=== PATIENT | male | born 1955 | race Caucasian/White ===

== ENCOUNTER 2017-03-22 19:53 | Inpatient (IN) | payer MEDICAID ==
[~2017-03-22] VITALS: Ht 180.3 cm; Wt 103.0 kg
[~2017-03-22 19:53] MED LIST: ASPI81CH43 PO; GABA300C8 PO; LISI-275 PO; METO25TA5 PO; NOR10T PO
[2017-03-22 20:37] LABS: Basophils # (auto) 0.1 uL; Basophils % (auto) 0.7 % (0.0-2.0); Eosinophils # (auto) 0.5 uL; Eosinophils % (auto) 6.4 % (0.0-7.0); Hematocrit 42.5 % (41.0-53.0); Hemoglobin 13.8 g/dL (13.5-17.5); Lymphocytes # (auto) 2.1 uL; Mean Corpuscular Hgb Conc. 32.5 g/dL (32.0-36.0); Mean Corpuscular Volume 83.2 fL (80.0-100.0); Mean Platelet Volume 7.4 fL (7.4-10.4); Monocytes # (auto) 0.9 uL; Neutrophils # (auto) 4.5 uL; Neutrophils % (auto) 55.9 % (37.0-80.0); Platelet Count (auto) 175 10^3/uL (140-450); Red Cell Distribution Width 12.9 % (11.6-16.0)
[2017-03-22 20:56] LABS: INR 1.06 (0.9-1.15); Partial Thromboplastin Time 27.4 sec (22.64-33.71); Prothrombin Time 11.4 sec (9.37-12.3)
[2017-03-22] MEDS ORDERED: ASPirin 81 mg TAB PO ONE (21:15)
[2017-03-22] MEDS ORDERED: METOCLOPRAMIDE HCL 5MG/ml INJ 2ml VIAL IV ONE (21:15)
[2017-03-22] MEDS ORDERED: MORPHINE SULFATE 4 MG/ML SYRG IV ONE (21:15)
[2017-03-22 21:20] LABS: Albumin 4.1 g/dL (3.4-5.0); Alkaline Phosphatase 83 U/L (45-117); Anion Gap 6 (5-15); Aspartate Aminotransferase 32 U/L (15-37); BUN/Creatinine Ratio 8.5; Bilirubin, Total 0.5 mg/dL (0.2-1.0); Blood Urea Nitrogen 11 mg/dL (7-18); Carbon Dioxide 28 mmol/L (21-32); Chloride 106 mmol/L (98-107); GFR African American 73 mL/min; GFR Non-African American 60 mL/min; Glucose 124 mg/dL (74-106); Potassium 4.3 mmol/L (3.5-5.1); Sodium 140 mmol/L (136-145); Total Protein 7.5 g/dL (6.4-8.2)
[2017-03-22 21:37] LABS: B-Type Natriuretic Peptide 36.64 pg/mL (0-100)
[2017-03-22 21:46] LABS: Temperature: 23.3 C (20.0-25.0)
[2017-03-23] MEDS ORDERED: ONDANSETRON HCL 4 MG/2 ML VIAL IV PRN (02:00)
[2017-03-23] MEDS ORDERED: ACETAMINOPHEN 325 MG TAB PO PRN (02:00)
[2017-03-23] MEDS ORDERED: TEMAZEPAM 15 MG CAP PO PRN (02:00)
[2017-03-23] MEDS ORDERED: NITROGLYCERIN 0.4 MG SL TAB SL PRN (02:00)
[2017-03-23] MEDS ORDERED: MORPHINE SULF INJ 2 MG/ML SYRINGE 1ML IV PRN (02:00)
[2017-03-23] MEDS ORDERED: OME20T PO (03:45)
[2017-03-23] MEDS ORDERED: ATOR10TA PO (03:45)
[2017-03-23 05:00] VITALS: BP 153/69
[2017-03-23] MEDS: GABAPENTIN 300 MG CAP PO SCH ×3 (06:27→22:14)
[2017-03-23 07:02] LABS: Cholesterol 127 mg/dL (< 200); HDL Cholesterol 42 mg/dL (40-59); LDL Cholesterol 79 mg/dL (< 100); Triglycerides 107 mg/dL (< 150)
[2017-03-23 08:00] VITALS: BP 144/74
[2017-03-23] MEDS: LISINOPRIL 20 MG TAB PO SCH (09:43)
[2017-03-23] MEDS: ASPirin 81 mg TAB PO SCH (09:43)
[2017-03-23] MEDS: FAMOTIDINE 20 MG TAB PO SCH ×2 (09:43→22:14)
[2017-03-23] MEDS: ENOXAPARIN SOD 40 MG/0.4 ML SYRINGE SC SCH (09:44)
[2017-03-23] MEDS: HYDROcodone-ACET 5/325MG TAB PO PRN (09:48)
[2017-03-23 12:00] VITALS: BP 149/82
[2017-03-23 16:30] VITALS: BP 117/71
[2017-03-23 20:00] VITALS: BP 140/75
[2017-03-23 21:46] VITALS: BP 140/75
[2017-03-24 05:04] VITALS: BP 109/58
[2017-03-24] MEDS: GABAPENTIN 300 MG CAP PO SCH ×2 (06:17→14:00)
[2017-03-24 06:29] LABS: Basophils # (auto) 0.1 uL; Basophils % (auto) 0.7 % (0.0-2.0); DEFINITIVE VIEW TRANSMISSION; Eosinophils # (auto) 0.4 uL; Eosinophils % (auto) 6.1 % (0.0-7.0); Hematocrit 41.7 % (41.0-53.0); Hemoglobin 13.5 g/dL (13.5-17.5); Lymphocytes # (auto) 1.7 uL; Lymphocytes % (auto) 24.2 % (10.0-50.0); Mean Corpuscular Hgb Conc. 32.4 g/dL (32.0-36.0); Mean Corpuscular Volume 83.2 fL (80.0-100.0); Mean Platelet Volume 7.2 fL (7.4-10.4); Monocytes # (auto) 0.9 uL; Monocytes % (auto) 13.3 % (0.0-12.0); Neutrophils # (auto) 3.9 uL; Neutrophils % (auto) 55.7 % (37.0-80.0); Platelet Count (auto) 170 10^3/uL (140-450); Red Cell Distribution Width 12.8 % (11.6-16.0); White Blood Cell 7.1 10^3/uL (4.4-10.8)
[2017-03-24 06:57] LABS: Albumin 3.6 g/dL (3.4-5.0); BUN/Creatinine Ratio 11.9; Bilirubin, Total 0.5 mg/dL (0.2-1.0); Calcium 9.1 mg/dL (8.5-10.1); Potassium 4.2 mmol/L (3.5-5.1); Total Protein 6.8 g/dL (6.4-8.2)
[2017-03-24] MEDS ORDERED: ADENOSINE 87 MG in GIVE UN-DILUTED 0 ML IV STA (07:59)
[2017-03-24 08:00] VITALS: BP 122/68
[2017-03-24 09:15] VITALS: BP 119/65
[2017-03-24] MEDS: LISINOPRIL 20 MG TAB PO SCH (10:44)
[2017-03-24] MEDS: ENOXAPARIN SOD 40 MG/0.4 ML SYRINGE SC SCH (10:44)
[2017-03-24] MEDS: ASPirin 81 mg TAB PO SCH (10:44)
[2017-03-24] MEDS: FAMOTIDINE 20 MG TAB PO SCH (10:45)
[2017-03-24] MEDS: HYDROcodone-ACET 5/325MG TAB PO PRN (10:55)
[2017-03-24 13:00] VITALS: BP 134/75
[2017-03-24 16:35] VITALS: BP 138/65
[2017-03-24 18:49] VITALS: BP 138/65
== END 2017-03-24 19:34 | disposition home or self-care (01) | DRG 198 ==
LOC: ER 19:55 → TELE 19:56 → TELE-CENTR 03-23 03:04
PROVIDERS: ADMIT Internal Medicine; ATTEND Internal Medicine
DX: R07.89 Other chest pain (principal); I25.10 Atherosclerotic heart disease of native coronary artery without angina pectoris; I10 Essential (primary) hypertension; M94.0 Chondrocostal junction syndrome [Tietze]; E78.5 Hyperlipidemia, unspecified; T50.995A Adverse effect of other drugs, medicaments and biological substances, initial encounter; R00.1 Bradycardia, unspecified; K21.9 Gastro-esophageal reflux disease without esophagitis; Z82.49 Family history of ischemic heart disease and other diseases of the circulatory system; Z83.3 Family history of diabetes mellitus; Z79.899 Other long term (current) drug therapy; Z90.89 Acquired absence of other organs; Z80.8 Family history of malignant neoplasm of other organs or systems; Y92.89 Other specified places as the place of occurrence of the external cause
CPT/HCPCS: 36415; 71010; 78452; 80053; 80061; 83735; 83880; 84484; 85025; 85379; 85610; 85730; 93005; 93017; 93306; 94761; 96374; 96375; J0153

== ENCOUNTER 2018-04-25 20:53 | Emergency (ER) | payer MEDICAID ==
[~2018-04-25] VITALS: Ht 180.3 cm; Wt 97.5 kg
[~2018-04-25 20:53] MED LIST changes: +ATOR10TA PO; +GABA300C10 PO; -GABA300C8 PO; -LISI-275 PO; -METO25TA5 PO; +OME20T PO
[2018-04-25 22:11] LABS: Basophils # (auto) 0.1 uL; Eosinophils # (auto) 0.7 uL; Eosinophils % (auto) 7.3 % (0.0-7.0); Hematocrit 44.3 % (41.0-53.0); Hemoglobin 14.7 g/dL (13.5-17.5); Lymphocytes # (auto) 2.3 uL; Lymphocytes % (auto) 25.5 % (10.0-50.0); Mean Corpuscular Hemoglobin 27.4 pg (28.0-32.0); Mean Corpuscular Hgb Conc. 33.2 g/dL (32.0-36.0); Mean Corpuscular Volume 82.5 fL (80.0-100.0); Monocytes # (auto) 1.2 uL; Monocytes % (auto) 12.8 % (0.0-12.0); Neutrophils # (auto) 4.9 uL; Neutrophils % (auto) 53.4 % (37.0-80.0); Platelet Count (auto) 141 10^3/uL (140-450); Red Blood Cells 5.37 10^6/uL (4.5-5.90); Red Cell Distribution Width 14.9 % (11.8-14.3); White Blood Cell 9.1 10^3/uL (4.4-10.8)
[2018-04-25 23:01] LABS: Alanine Aminotransferase 28 U/L (16-61); Albumin 3.9 g/dL (3.4-5.0); Alkaline Phosphatase 95 U/L (45-117); Anion Gap 7 (5-15); Aspartate Aminotransferase 16 U/L (15-37); BUN/Creatinine Ratio 11.8; Bilirubin, Total 0.5 mg/dL (0.2-1.0); Blood Urea Nitrogen 14 mg/dL (7-18); Calcium 9.1 mg/dL (8.5-10.1); Carbon Dioxide 27 mmol/L (21-32); Chloride 105 mmol/L (98-107); GFR African American 80 mL/min; GFR Non-African American 66 mL/min; Glucose 117 mg/dL (74-106); Magnesium 2.6 mg/dL (1.6-2.6); Potassium 4.6 mmol/L (3.5-5.1); Sodium 139 mmol/L (136-145); Total Protein 7.4 g/dL (6.4-8.2)
[2018-04-26 03:01] VITALS: BP 153/81
== END 2018-04-26 03:47 | disposition home or self-care (01) ==
LOC: ER 20:53
DX: F41.9 Anxiety disorder, unspecified (principal); K21.9 Gastro-esophageal reflux disease without esophagitis; E78.5 Hyperlipidemia, unspecified; I10 Essential (primary) hypertension; Z90.49 Acquired absence of other specified parts of digestive tract; Z79.82 Long term (current) use of aspirin; Z79.899 Other long term (current) drug therapy
CPT/HCPCS: 36415; 71045; 80053; 83735; 83880; 84443; 84484; 85025; 93005

== ENCOUNTER 2019-04-20 02:42 | Emergency (ER) | payer MEDICARE ==
[~2019-04-20] VITALS: Ht 177.8 cm; Wt 95.3 kg
[~2019-04-20 02:42] MED LIST changes: -ASPI81CH43 PO; -ATOR10TA PO; +ATOR10TA52 PO; -GABA300C10 PO; +IBUP800T24 PO; +METO25TA62 PO; +NITR0.4S29 SL; -OME20T PO; +OMEP20TA PO
[2019-04-20 04:12] LABS: Basophils # (auto) 0.1 uL; Eosinophils # (auto) 0.4 uL; Eosinophils % (auto) 5.5 % (0.0-7.0); Hematocrit 44.4 % (41.0-53.0); Hemoglobin 15.1 g/dL (13.5-17.5); Lymphocytes # (auto) 1.6 uL; Lymphocytes % (auto) 20.2 % (10.0-50.0); Mean Corpuscular Hemoglobin 27.6 pg (28.0-32.0); Mean Corpuscular Hgb Conc. 34.1 g/dL (32.0-36.0); Monocytes # (auto) 1.1 uL; Monocytes % (auto) 14.1 % (0.0-12.0); Neutrophils # (auto) 4.5 uL; Neutrophils % (auto) 59.2 % (37.0-80.0); Platelet Count (auto) 123 10^3/uL (140-450); Red Blood Cells 5.48 10^6/uL (4.5-5.90); Red Cell Distribution Width 15.2 % (11.8-14.3); White Blood Cell 7.7 10^3/uL (4.4-10.8)
[2019-04-20 04:30] LABS: Urine Bacteria FEW /hpf (None Seen); Urine Blood Negative /uL (Negative); Urine Specific Gravity 1.008 (1.001-1.035); Urine WBC 2 /hpf (0 - 3)
[2019-04-20 04:36] LABS: BUN/Creatinine Ratio 8.6; Potassium 4.1 mmol/L (3.5-5.1)
[2019-04-20 04:47] LABS: Bilirubin, Total 0.4 mg/dL (0.2-1.0); Total Protein 7.5 g/dL (6.4-8.2)
[2019-04-20 08:35] VITALS: BP 151/94
== END 2019-04-20 08:39 | disposition home or self-care (01) ==
LOC: ER 02:51
DX: R07.89 Other chest pain (principal); K21.9 Gastro-esophageal reflux disease without esophagitis; E78.5 Hyperlipidemia, unspecified; I10 Essential (primary) hypertension; Z98.61 Coronary angioplasty status; Z79.899 Other long term (current) drug therapy
CPT/HCPCS: 36415; 71046; 80053; 81001; 84484; 85025; 93005

== ENCOUNTER 2019-11-21 03:39 | Emergency (ER) | payer MEDICARE ==
[~2019-11-21] VITALS: Ht 185.4 cm; Wt 99.8 kg
[~2019-11-21 03:39] MED LIST changes: -METO25TA62 PO; +METO25TA93 PO
[2019-11-21 05:19] LABS: Basophils # (auto) 0.1 uL; Basophils % (auto) 1.1 % (0.0-2.0); Eosinophils # (auto) 0.7 uL; Eosinophils % (auto) 7.9 % (0.0-7.0); Hematocrit 43.7 % (41.0-53.0); Hemoglobin 15.2 g/dL (13.5-17.5); Lymphocytes # (auto) 1.6 uL; Lymphocytes % (auto) 19.4 % (10.0-50.0); Mean Corpuscular Hemoglobin 28.6 pg (28.0-32.0); Mean Corpuscular Hgb Conc. 34.8 g/dL (32.0-36.0); Mean Corpuscular Volume 82.2 fL (80.0-100.0); Monocytes # (auto) 1.2 uL; Neutrophils # (auto) 4.8 uL; Neutrophils % (auto) 57.6 % (37.0-80.0); Nucleated Red Blood Cells % 0.1 %; Platelet Count (auto) 143 10^3/uL (140-450); Red Blood Cells 5.32 10^6/uL (4.5-5.90); Red Cell Distribution Width 14.3 % (11.8-14.3); White Blood Cell 8.3 10^3/uL (4.4-10.8)
[2019-11-21 05:39] LABS: Albumin 3.7 g/dL (3.4-5.0); BUN/Creatinine Ratio 11.7; Calcium 8.5 mg/dL (8.5-10.1); Potassium 3.9 mmol/L (3.5-5.1)
[2019-11-21 05:42] LABS: Bilirubin, Total 0.6 mg/dL (0.2-1.0); Total Protein 7.2 g/dL (6.4-8.2)
[2019-11-21] MEDS ORDERED: SODIUM CHLORIDE 0.9% 1,000 ML IV ONE ×2 (06:50)
[2019-11-21] MEDS ORDERED: KETOROLAC TROMETH 30 MG/ML 1ML VIAL IV ONE (07:00)
[2019-11-21 07:19] LABS: Basophils # (auto) 0.1 uL; Basophils % (auto) 1.2 % (0.0-2.0); Eosinophils # (auto) 0.5 uL; Eosinophils % (auto) 5.5 % (0.0-7.0); Hematocrit 44.7 % (41.0-53.0); Hemoglobin 15.3 g/dL (13.5-17.5); Lymphocytes # (auto) 1.3 uL; Lymphocytes % (auto) 16.2 % (10.0-50.0); Mean Corpuscular Hemoglobin 28.3 pg (28.0-32.0); Mean Corpuscular Hgb Conc. 34.2 g/dL (32.0-36.0); Mean Corpuscular Volume 82.6 fL (80.0-100.0); Monocytes % (auto) 11.8 % (0.0-12.0); Neutrophils # (auto) 5.4 uL; Neutrophils % (auto) 65.3 % (37.0-80.0); Nucleated Red Blood Cells % 0.1 %; Platelet Count (auto) 147 10^3/uL (140-450); Red Blood Cells 5.41 10^6/uL (4.5-5.90); Red Cell Distribution Width 14.4 % (11.8-14.3); White Blood Cell 8.3 10^3/uL (4.4-10.8)
[2019-11-21 07:35] LABS: Albumin 3.8 g/dL (3.4-5.0); Anion Gap 5 (5-15); Blood Urea Nitrogen 14 mg/dL (7-18); Calcium 8.8 mg/dL (8.5-10.1); Carbon Dioxide 26 mmol/L (21-32); Chloride 106 mmol/L (98-107); Glucose 137 mg/dL (74-106); Potassium 4.2 mmol/L (3.5-5.1); Sodium 137 mmol/L (136-145)
[2019-11-21 07:37] LABS: Alanine Aminotransferase 33 U/L (16-61); BUN/Creatinine Ratio 11.1; GFR African American 75 mL/min; GFR Non-African American 62 mL/min
[2019-11-21 07:45] LABS: Alkaline Phosphatase 92 U/L (45-117); Aspartate Aminotransferase 19 U/L (15-37); Bilirubin, Total 0.7 mg/dL (0.2-1.0); Total Protein 7.5 g/dL (6.4-8.2)
[2019-11-21 10:25] LABS: Urine Bacteria NONE SEEN /hpf (None Seen); Urine Blood Negative /uL (Negative); Urine Specific Gravity 1.017 (1.001-1.035); Urine WBC 1 /hpf (0 - 3)
[2019-11-21 10:35] VITALS: BP 157/83
== END 2019-11-21 12:01 | disposition home or self-care (01) ==
LOC: EDBD 03:39 → ER 03:44
DX: R73.9 Hyperglycemia, unspecified (principal); M79.10 Myalgia, unspecified site; K21.9 Gastro-esophageal reflux disease without esophagitis; E78.00 Pure hypercholesterolemia, unspecified; I10 Essential (primary) hypertension; Z90.89 Acquired absence of other organs; Z79.1 Long term (current) use of non-steroidal anti-inflammatories (NSAID); Z79.899 Other long term (current) drug therapy
CPT/HCPCS: 36415; 74176; 80053; 81001; 84484; 85025; 96374; 99284; J1885; J7030